=== PATIENT | male | born 1980 | race Caucasian/White ===

== ENCOUNTER 2025-04-11 19:30 | Emergency (ER) | payer MEDICAID ==
[2025-04-11] MEDS: Ketorolac 30 MG/ML SDV IM ONE (20:23)
== END 2025-04-11 20:40 | disposition home or self-care (01) ==
LOC: FB.ED 19:30
DX: M62.830 Muscle spasm of back (principal); F17.210 Nicotine dependence, cigarettes, uncomplicated
CPT/HCPCS: 96372; 99283; A9270; J1885